=== PATIENT | male | born 1995 | race Caucasian/White ===

== ENCOUNTER 2017-01-10 10:51 | Emergency (ER) | payer OTHER ==
[2017-01-10 11:44] LABS: HEMOGLOBIN 17.4 gm/dl (14.0-17.5); RED BLOOD COUNT 5.95 M/UL (4.20-5.50); WHITE BLOOD COUNT 9.1 K/UL (4.5-11.0)
[2017-01-10 12:05] LABS: BUN/CREATININE RATIO 18 (0-10)
== END 2017-01-10 14:37 | disposition other institution (70) ==
LOC: ER1 10:51
PROVIDERS: Physician Assistant Medical
DX: L02.511 Cutaneous abscess of right hand (principal); L03.011 Cellulitis of right finger; F17.210 Nicotine dependence, cigarettes, uncomplicated
CPT/HCPCS: 36415; 73130; 80053; 85025; 86140; 87040; 87070; 87077; 87186; 87205; 96374; 96375; 99284; J1885; J3370; J7050